=== PATIENT | male | born 1980 | race Caucasian/White ===

== ENCOUNTER 2017-07-31 10:59 | Day surgery (SDC) | payer OTHER ==
[~2017-07-31 10:59] MED LIST: Dexamethasone 4 MG/ML 5 ML MDV ONE; Lidocaine 1% 20 ML MDV ONE; Lidocaine 2% with EPINEPHrine 1:100,000 20 ML MDV ONE; Midazolam 1 MG/ML 2 ML SDV ONE; Ondansetron 4 MG/2 ML SDV ONE; Oxymetazoline 0.05% Nasal Spray 15 ML Bottle ONE; Propofol 200 MG/20 ML SDV ONE; Rocuronium 10 MG/ML 10 ML Syringe ONE; ceFAZolin 2 GM in Premix Bag 1 BAG IV ONE; diphenhydrAMINE 50 MG/ML SDV ONE; fentaNYL 250 MCG/5 ML SDV ONE
--- NOTE | 2017-07-31 11:25 | PCM.PREANE ---
Preanesthetic Assessment - Anesthesia/Transfusion/Family Hx Anesthesia History: Prior Anesthesia Without Reaction Transfusion History: No Prior Transfusion(s) - Review of Systems General: No Symptoms Pulmonary: No Symptoms Cardiovascular: No Symptoms Gastrointestinal: No Symptoms Neurological: No Symptoms Other: Reports: None - Physical Assessment NPO Status Date: 07/30/17 Height: 1.88 m Weight: 122.47 kg ASA Class: 2 Mental Status: Alert & Oriented x3 Airway Class: Mallampati = 2 Dentition: Reports: Normal Dentition, Matador(s) ROM/Head Extension: Full Lungs: Clear to Auscultation, Normal Respiratory Effort Cardiovascular: Regular Rate, Regular Rhythm - Allergies Allergies/Adverse Reactions: Allergies Allergy/AdvReac Type Severity Reaction Status Date / Time No Known Allergies Allergy Verified 07/30/17 10:00 - Anesthesia Plan Pre-Op Medication Ordered: None - Acknowledgements Anesthesia Type Planned: General Anesthesia Pt an Appropriate Candidate for the Planned Anesthesia: Yes Alternatives and Risks of Anesthesia Discussed w Pt/Guardian: Yes Pt/Guardian Understands and Agrees with Anesthesia Plan: Yes PreAnesthesia Questionnaire Other HEENT History: wears glasses/contacts Cardiovascular History: Reports: Hypertension Musculoskeletal History: Reports: Fracture Other Musculoskeletal History: hx of fx finger Endocrine/Metabolic History: Reports: Obesity/BMI 30+ - Past Surgical History Musculoskeletal Surgical History: Reports: Other (See Below) Other Musculoskeletal Surgeries/Procedures:: 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 - SUBSTANCE USE Smoking Status *Q: Never Smoker Recreational Drug Use History: No - HOME MEDS Home Medications: Home Meds Enalapril/Hydrochlorothiazide [Enalapril-HCTZ 10-25 MG] 1 tab PO DAILY 07/30/17 [History] Escitalopram [Lexapro] 10 mg PO DAILY 07/30/17 [History] - CURRENT (IN HOUSE) MEDS Current Meds: Current Medications Discontinued Medications Dexamethasone (Dexamethasone) Confirm Administered Dose 20 mg .ROUTE .STK-MED ONE Stop: 07/31/17 10:06 Diphenhydramine HCl (Benadryl) Confirm Administered Dose 50 mg .ROUTE .STK-MED ONE Stop: 07/31/17 10:06 Fentanyl (Sublimaze) Confirm Administered Dose 250 mcg .ROUTE .STK-MED ONE Stop: 07/31/17 10:07 Cefazolin Sodium/Dextrose 2 gm (/ Premix) 50 mls @ as directed IV .STK-MED ONE Stop: 07/31/17 10:09 Lidocaine HCl (Xylocaine 1%) Confirm Administered Dose 20 ml .ROUTE .ST-MED ONE Stop: 07/31/17 07:50 Lidocaine/Epinephrine (Xylocaine 2% With Epinephrine 1:100,000) Confirm Administered Dose 20 ml .ROUTE .ST-MED ONE Stop: 07/31/17 07:50 Midazolam HCl (Versed 1 Mg/Ml) Confirm Administered Dose 2 mg .ROUTE .ST-MED ONE Stop: 07/31/17 10:07 Ondansetron HCl (Zofran) Confirm Administered Dose 4 mg .ROUTE .ST-MED ONE Stop: 07/31/17 10:06 Oxymetazoline HCl (Afrin Original 0.05% Nasal [place]) Confirm Administered Dose 15 ml .ROUTE .ST-MED ONE Stop: 07/31/17 07:49 Propofol (Diprivan 20 Ml) Confirm Administered Dose 200 mg .ROUTE .ST-MED ONE Stop: 07/31/17 10:07 Rocuronium [place] (Zemuron) Confirm Administered Dose 100 mg .ROUTE .ST-MED ONE Stop: 07/31/17 10:06
--- NOTE | 2017-07-31 12:00 | PCM.HPR ---
H & P Addendum review - H & P Addendum Review Date of Original H & P: 07/29/17 Date Reviewed: 07/31/17 Time Reviewed: 12:00 Patient was Examined: No Changes
[2017-07-31] MEDS ORDERED: HYDROmorphone 2 MG/ML Syringe ONE ×2 (12:12→12:25)
[2017-07-31] MEDS ORDERED: Succinylcholine/Normal Saline 200 MG/10 ML Syringe ONE (12:12)
[2017-07-31] MEDS ORDERED: fentaNYL 100 MCG/2 ML SDV ONE (12:26)
[2017-07-31] MEDS ORDERED: Phenylephrine/Normal Saline 100 MCG/ML 10 ML Syringe ONE (12:47)
[2017-07-31] MEDS ORDERED: Ketorolac 30 MG/ML SDV ONE (13:02)
[2017-07-31] MEDS ORDERED: Esmolol 100 MG/10 ML SDV ONE (13:04)
[2017-07-31] MEDS ORDERED: fentaNYL 100 MCG/2 ML SDV IVPUSH PRN (13:35)
--- NOTE | 2017-07-31 13:48 | PCM.POSTAN ---
POST ANESTHESIA ASSESSMENT - MENTAL STATUS Mental Status: Alert, Oriented - VITAL SIGNS Pulse Rate: 99 SaO2: 99 Resp Rate: 12 Blood Pressure: 142/78 - RESPIRATORY Respiratory Status: Respiratory Rate WNL, Airway Patent - CARDIOVASCULAR CV Status: Pulse Rate WNL, Blood Pressure Stable - GASTROINTESTINAL GI Status: No Symptoms - POST OP HYDRATION Hydration Status: Adequate & Stable
[2017-07-31] MEDS ORDERED: Ibuprofen 400 MG Tab PO PRN (14:17)
[2017-07-31] MEDS ORDERED: oxyCODONE 5 MG Tab PO PRN (14:18)
--- NOTE | 2017-07-31 14:27 | PCM.OPNOTE ---
- General Post-Op/Procedure Note Date of Surgery/Procedure: 07/31/17 Condition: Good Free Text/Narrative:: Intake & Output 07/30/17 07/31/17 07/31/17 22:59 06:59 14:59 Intake Total 1700 Balance 1700 Diagnosis: Nasal obstruction, deviated nasal septum Procedure: Nasal septoplasty Surgeon: Padmini Ayala MD Anesthesia:GA Anesthesiologist: Vickie ROBISON Date of procedure: 07/31/2017 Indications: Nasal obstruction, deviated nasal septum Findings: Left deviation of nasal septum; L chondro vomerine spur, L dislocation of cartilage off the maxillary crest Operation Details: An informed consent was obtained. A time out was performed and the patient was brought back to the operating room. Gen. anesthesia was administered with an endotracheal tube. Bilateral nasal cavities were packed with oxymetazoline 0.05 % soaked cottonoid pledgets. The patient was then prepped and draped in a standard fashion. The pledgets were then removed. Nasal septum was infiltrated with 2% lidocaine 1: 100, 000 epinephrine in a standard fashion-a total of 5 mils was used. A left sided Yousif incision was performed. A left sided mucoperichondrial flap was elevated-dissection was commenced with 2 mm osteotome and further carried out with combination of shayna and Orient elevators. Posteriorly the flap was continued as a muco periosteal flap. Sharp and careful dissection was performed to lift the flaps off the left sided spur along the floor. A vertical incision was made in the anterior septum just posterior to the mucosal incision and Right-sided mucoperichondrial amd periosteal flaps were elevated. A posterior chondrotomy was performed and posterior flaps were elevated. A strip of dislocated cartilage along the floor was removed. A ribera scissor was used and the perpendicular plate of the ethmoid was removed. The vomer along with left-sided spur was also removed. Part of cartilage adjacent to the posterior bony septum was also removed. Subsequent to this the nasal septum was positioned towards the midline. There was a very small tear along the floor on the left side; flap was intact on the right side. Flap incision was sutured with 3-0 Vicryl. Mattress sutures were also performed. Bilateral Dickens splints were inserted and secured in place with 2-0 Prolene sutures. His concluded the procedure and the patient was handed over to anesthesia for recovery Specimens: none IV fluids: as above Blood loss: 50 ml Blood products: nil Disposition: PACU for recovery Follow up: 1 week for removal of splints
--- NOTE | 2017-07-31 14:51 | PCM48HPAN ---
Post Anesthesia Note - EVALUATION WITHIN 48HRS OF ANESTHETIC Vital Signs in Normal Range: Yes Patient Participated in Evaluation: Yes Respiratory Function Stable: Yes Airway Patent: Yes Cardiovascular Function Stable: Yes Hydration Status Stable: Yes Pain Control Satisfactory: Yes Nausea and Vomiting Control Satisfactory: Yes Mental Status Recovered: Yes
[2017-07-31] MEDS ORDERED: Lactated Ringers 1,000 ML IV SCH (15:30)
== END 2017-07-31 15:05 | disposition home or self-care (01) ==
LOC: MW.SDS 10:59
PROVIDERS: ATTEND Otolaryngology
DX: J34.2 Deviated nasal septum (principal); J34.89 Other specified disorders of nose and nasal sinuses; I10 Essential (primary) hypertension; Z79.899 Other long term (current) drug therapy
CPT/HCPCS: 30520; A9270; J0690; J1100; J1170; J1200; J2250; J2405; J3010; J7120; 00160; J1885; J2704

== ENCOUNTER 2022-02-24 14:04 | Emergency (ER) | payer BC, OTHER ==
[2022-02-24] MEDS ORDERED: Lidocaine/Epineph/Tetracaine 3 ML Syringe TOP ONE (14:30)
[2022-02-24] MEDS ORDERED: Cephalexin 500 MG Cap PO ONE (14:30)
== END 2022-02-24 14:57 | disposition home or self-care (01) ==
LOC: MW.ED 14:04
DX: L03.90 Cellulitis, unspecified (principal); L73.9 Follicular disorder, unspecified; I10 Essential (primary) hypertension; E66.9 Obesity, unspecified; Z68.29 Body mass index [BMI] 29.0-29.9, adult
CPT/HCPCS: 99282; A9270